=== PATIENT | female | born 1980 | race Caucasian/White ===

== ENCOUNTER 2025-05-05 23:12 | Emergency (ER) | payer OTHER ==
[~2025-05-05] VITALS: Ht 175.3 cm; Wt 63.6 kg
[2025-05-05 23:27] VITALS: TEMP 98.5
[2025-05-06] MEDS: BUPRENORPHINE/NALOXONE 8-2MG SUBLINGUAL TABLET(SUBOXONE) SL ONE (00:59)
[2025-05-06] MEDS: ONDANSETRON 4MG ORAL DISINTEGRATING TAB PO ONE (00:59)
[2025-05-06 03:00] VITALS: BP 119/66; O2SAT 100
== END 2025-05-06 03:11 | disposition home or self-care (01) ==
LOC: M ED 23:12
DX: F11.13 Opioid abuse with withdrawal (principal); Z88.0 Allergy status to penicillin

== ENCOUNTER 2025-06-09 13:20 | Emergency (ER) | payer OTHER ==
[~2025-06-09] VITALS: Ht 175.3 cm; Wt 66.0 kg
[2025-06-09 14:17] LABS: KETONE, URINE AUTO RFX NEGATIVE (NEGATIVE); LEUKOCYTE ESTERASE UR AUTO RFX NEGATIVE (NEGATIVE); NITRITE, URINE AUTO RFX NEGATIVE (NEGATIVE); RBC, URINE AUTO RFX 1 /HPF (0-3); SQUAM EPITHELIAL CELL UR AURFX 4 /HPF (0-6); WBC, URINE AUTO RFX 1 /HPF (0-3)
[2025-06-09 17:47] LABS: BASO # 0.0 10^3/uL (0.0-0.2); BASO % 0.6 % (0.0-1.0); EOS # 0.1 10^3/uL (0.0-0.5); EOS % 1.4 % (0.0-3.0); LYMPH # 3.5 10^3/uL (1.5-5.0); LYMPH % 50.1 % (24.0-44.0); MONO # 0.6 10^3/uL (0.0-0.8); MONO % 8.1 % (2.0-8.0); NEUTROPHILS # 2.7 10^3/uL (1.5-8.5); NEUTROPHILS % 39.7 % (36.0-66.0); PLATELET COUNT, AUTOMATED 271 10^3/uL (150-450)
[2025-06-09] MEDS: NS (Normal Saline) 0.9% 1,000 ML IV ONE (17:51)
[2025-06-09] MEDS: KETOROLAC 30 MG/ML 1 ML VIAL IV ONE (17:51)
[2025-06-09 18:09] LABS: CALCIUM LEVEL 8.7 MG/DL (8.5-10.1); CARBON DIOXIDE LEVEL 29.0 MMOL/L (20-31); CHLORIDE LEVEL 106.0 MMOL/L (98-107); CREATININE FOR GFR 0.85 MG/DL (0.55-1.30); GLOMERULAR FILTRATION RATE 86.6 (>58); POTASSIUM SERUM 4.6 MMOL/L (3.5-5.1); SODIUM LEVEL 142.0 MMOL/L (136-145)
[2025-06-09 18:36] LABS: URINE PREG TEST NEGATIVE (NEGATIVE)
[2025-06-09 20:10] VITALS: BP 111/65; TEMP 97.8; O2SAT 97
== END 2025-06-09 20:31 | disposition home or self-care (01) ==
LOC: M ED 13:20
DX: R33.9 Retention of urine, unspecified (principal); N83.209 Unspecified ovarian cyst, unspecified side; K59.00 Constipation, unspecified; I95.9 Hypotension, unspecified; R56.9 Unspecified convulsions; J45.909 Unspecified asthma, uncomplicated; F41.9 Anxiety disorder, unspecified; F32.A Depression, unspecified; Z88.0 Allergy status to penicillin
CPT/HCPCS: 51702; 74176; 80048; 81001; 83605; 84703; 85025; 87040; 96361; 96374; 99284; J1885

== ENCOUNTER → 2025-06-14 | Outpatient (REF) | payer OTHER ==
[2025-06-14 12:57] LABS: APPEARANCE, URINE CLEAR (CLEAR); BACTERIA, URINE AUTO NEGATIVE (NEGATIVE); BILIRUBIN, URINE AUTO NEGATIVE (NEGATIVE); BLOOD, URINE BLOOD 2+ (NEGATIVE); GLUCOSE, URINE (UA) AUTO NEGATIVE (NEGATIVE); KETONE, URINE AUTO NEGATIVE (NEGATIVE); LEUKOCYTE ESTERASE, URINE AUTO NEGATIVE (NEGATIVE); MUCUS, URINE SMALL (NEGATIVE); NITRITE, URINE AUTO NEGATIVE (NEGATIVE); PROTEIN, URINE AUTO NEGATIVE (NEGATIVE); RBC, URINE AUTO 24 /HPF (0-3); SPECIFIC GRAVITY URINE AUTO 1.005 (1.002-1.035); SQUAMOUS EPITHELIAL CELL UR AU 0 /HPF (0-6); UROBILINOGEN, URINE AUTO 0.2 mg/dL (0.0-2.0); WBC, URINE AUTO 2 /HPF (0-3)
== END ==
LOC: M SMT 12:39
PROVIDERS: ATTEND Nurse Practitioner Family
DX: R33.9 Retention of urine, unspecified (principal)